=== PATIENT | female | born 1950 | race Two or more races ===

== ENCOUNTER 2021-09-04 22:33 | Emergency (ER) | payer MEDICARE, OTHER ==
[~2021-09-04] VITALS: Ht 160 cm; Wt 124.7 kg
--- NOTE | 2021-09-04 22:50 | NUR ---
BIBDAUGHTER C/O HIGH BP, LOW 02 SATS, DIZZINESS WITH UNSTEADY BALANCE AND PRESSURE TO THE BACK HEAD X1 DAY. PATIENT PLACED IN BED. VITALS CHECKED.
--- NOTE | 2021-09-04 23:00 | NUR ---
SEEN BY DR BUCKLEY AT BEDSIDE
[2021-09-04 23:28] LABS: BASOPHILS # (AUTO) 0.1 K/uL (0.0-0.2); BASOPHILS % (AUTO) 0.6 % (0.0-2.0); EOSINOPHILS % (AUTO) 0.7 % (0.0-6.0); HEMATOCRIT 40 % (33-45); HEMOGLOBIN 13.1 g/dL (11.5-14.8); LYMPHOCYTES # (AUTO) 2.1 K/uL (0.8-4.8); LYMPHOCYTES % (AUTO) 21.2 % (20.0-44.0); MEAN CORPUSCULAR HGB CONC 33 g/dl (31.0-36.0); MEAN CORPUSCULAR VOLUME 85 fL (82-100); MONOCYTES # (AUTO) 0.7 K/uL (0.1-1.30); MONOCYTES % (AUTO) 6.7 % (2.0-12.0); NEUTROPHILS # (AUTO) 7.1 K/uL (1.8-8.9); NEUTROPHILS % (AUTO) 70.8 % (43.0-81.0); PLATELET COUNT (AUTO) 287 K/uL (150-450); WHITE BLOOD COUNT (AUTO) 10.1 K/uL (4.3-11.0)
[2021-09-05] MEDS ORDERED: IOHEXOL-350 100 ML VIAL IV ONE (00:10)
[2021-09-05 00:12] LABS: CALCIUM, SERUM 9.6 mg/dL (8.5-10.1); CARBON DIOXIDE 35 mmol/L (21-32); CHLORIDE 101 mmol/L (98-107); CREATININE 0.7 mg/dL (0.6-1.3); GLUCOSE 125 mg/dL (74-106); POTASSIUM 4.8 mmol/L (3.5-5.1); SODIUM SERUM 138 mmol/L (136-145); UREA NITROGEN, BLOOD 16 mg/dL (7-18)
[2021-09-05] MEDS ORDERED: IV NS 0.9% 500 ML IV ONE (00:12)
[2021-09-05 00:28] LABS: ALANINE AMINOTRANSFERASE 29 U/L (12-78); ALBUMIN 3.4 g/dL (3.4-5.0); ALKALINE PHOSPHATASE 87 U/L (46-116); ASPARTATE AMINOTRANSFERASE 12 U/L (15-37); BILIRUBIN,DIRECT 0.1 mg/dL (0.0-0.2); BILIRUBIN,TOTAL 0.2 mg/dL (0.2-1.0); TOTAL PROTEIN, SERUM 7.5 g/dL (6.4-8.2)
--- NOTE | 2021-09-05 00:32 | NUR ---
IV LINE ESTABLISHED, RAC 18G
--- NOTE | 2021-09-05 00:49 | NUR ---
PT TAKEN FOR CT SCAN
[2021-09-05] MEDS ORDERED: KETOROLAC TROMETHAMINE INJ 30 MG/ML VIAL ONE (01:29)
[2021-09-05] MEDS ORDERED: FUROSEMIDE 40 MG/4 ML VIAL ONE (01:29)
[2021-09-05] MEDS ORDERED: FUROSEMIDE 40 MG/4 ML VIAL IV ONE (01:30)
[2021-09-05] MEDS ORDERED: KETOROLAC TROMETHAMINE INJ 30 MG/ML VIAL IV ONE (01:30)
[2021-09-05] MEDS ORDERED: TDAP [DIPH/PERTUSSIS/TET] 0.5 ML VIAL IM ONE ×2 (02:00→02:44)
[2021-09-05 02:01] LABS: BILIRUBIN,URINE NEGATIVE (NEGATIVE); LEUKOCYTE ESTERASE ,URINE NEGATIVE (NEGATIVE); NITRITE, URINE POSITIVE (NEGATIVE); PROTEIN,URINE NEGATIVE (NEGATIVE); UGLUCOSE NEGATIVE (NEGATIVE); UROBILINOGEN,URINE 0.2 EU/dL (0.2)
[2021-09-05 02:04] LABS: COLOR,URINE LIGHT YELLOW (YELLOW)
[2021-09-05] MEDS ORDERED: ALBUTEROL FS 2.5 MG/3 ML VIAL.NEB NEB ONE (03:00)
[2021-09-05] MEDS ORDERED: IPRATROPIUM NEB FS 0.5 MG/2.5 ML AMPUL.NEB NEB ONE (03:00)
[2021-09-05] MEDS ORDERED: IPRATROPIUM NEB FS 0.5 MG/2.5 ML AMPUL.NEB ONE (03:05)
[2021-09-05] MEDS ORDERED: ALBUTEROL FS 2.5 MG/3 ML VIAL.NEB ONE (03:05)
[2021-09-05 03:29] LABS: ABG PH 7.408 (7.350-7.450); ABG PO2 27.1 mmHg (75.0-100.0); COHb 0.2 % (0.5-1.5); MetHb 0.4 % (0.0-1.5); O2Hb 50.1 % (94.0-97.0); VENT MODE, BG 8L Aerosol Mask (HHN TX)
[2021-09-05 04:26] VITALS: BP 134/98
--- NOTE | 2021-09-05 04:26 | NUR ---
Patient discharged to home in stable condition. Written and verbal after care instructions given. Patient verbalizes understanding of instruction.
--- NOTE | 2021-09-05 04:26 | NUR ---
IV removed. Catheter intact and site benign. Pressure and 4x4 applied to site. No bleeding noted.
[2021-09-05 06:39] LABS: BACTERIA,URINE Few /HPF (None Seen); RBC,URINE NONE SEEN /HPF (0-2); WBC,URINE 0-2 /HPF (0-3)
== END 2021-09-05 04:27 | disposition home or self-care (01) ==
LOC: ER 22:54
DX: J81.1 Chronic pulmonary edema (principal); R06.89 Other abnormalities of breathing; I10 Essential (primary) hypertension
CPT/HCPCS: 36415; 36600; 70450; 70496; 70498; 80048; 80076; 80307; 81001; 82803; 83880; 84484; 85025; 87086; 93005; 93970; 96374; 96375; 99285; J1885; J1940; J7040; Q9967; 71045-TC; 90715